=== PATIENT | male | born 1965 | race Caucasian/White ===

== ENCOUNTER 2016-05-24 16:10 | Emergency (ER) | payer BC ==
[~2016-05-24] VITALS: Ht 180.3 cm; Wt 100.0 kg
[2016-05-24 17:04] VITALS: BP 108/75
== END 2016-05-24 19:12 | disposition left against medical advice (07) ==
LOC: ER 16:11 → EDSEX 16:11 → ER 19:12
DX: F15.10 Other stimulant abuse, uncomplicated (principal); F10.129 Alcohol abuse with intoxication, unspecified; R41.82 Altered mental status, unspecified; Y90.9 Presence of alcohol in blood, level not specified
CPT/HCPCS: 99281; Z7610